=== PATIENT | female | born 1990 | race African-American/Black ===

== ENCOUNTER 2024-07-01 18:03 | Emergency (ER) | payer OTHER ==
[~2024-07-01] VITALS: Ht 154.9 cm; Wt 95.3 kg
[2024-07-01 18:11] VITALS: PULSE 111; RESP 18; TEMP 99.9
[2024-07-01] MEDS ORDERED: BENZONATATE200 MG PO (18:36)
[2024-07-01] MEDS: ACETAMINOPHEN 325 MG TAB PO ONE (19:04)
[2024-07-01] MEDS ORDERED: ONDANSETRON ODT4 MG PO (19:05)
[2024-07-01 19:20] VITALS: BP 121/74; PULSE 100; RESP 18; TEMP 98.9; O2SAT 99
[2024-07-01] MEDS: ONDANSETRON HCL 4 MG ORAL DISINTEGRATING TAB PO ONE (19:35)
== END 2024-07-01 19:36 | disposition home or self-care (01) ==
LOC: FSED 18:34
DX: R05.9 Cough, unspecified (principal); J06.9 Acute upper respiratory infection, unspecified
CPT/HCPCS: 99284; Q0162